=== PATIENT | male | born 1960 | race Two or more races ===

== ENCOUNTER 2019-01-22 23:07 | Inpatient (IN) | payer MEDICAID ==
[~2019-01-22] VITALS: Ht 160 cm; Wt 59.0 kg
[2019-01-23 00:46] LABS: Basophils # (auto) 0 uL; Eosinophils # (auto) 0 uL; Eosinophils % (auto) 0.8 % (0.0-7.0); Hematocrit 30.6 % (41.0-53.0); Lymphocytes # (auto) 1.1 uL; Lymphocytes % (auto) 31.4 % (10.0-50.0); Mean Corpuscular Hemoglobin 27.3 pg (28.0-32.0); Mean Corpuscular Hgb Conc. 32.7 g/dL (32.0-36.0); Mean Corpuscular Volume 83.4 fL (80.0-100.0); Monocytes # (auto) 0.4 uL; Monocytes % (auto) 10.8 % (0.0-12.0); Platelet Count (auto) 104 10^3/uL (140-450); Red Blood Cells 3.67 10^6/uL (4.5-5.90); Red Cell Distribution Width 22.1 % (11.8-14.3); White Blood Cell 3.6 10^3/uL (4.4-10.8)
[2019-01-23] MEDS ORDERED: SODIUM CHLORIDE 0.9% 500 ML IV ONE (01:00)
[2019-01-23 01:03] LABS: Albumin 3.4 g/dL (3.4-5.0); BUN/Creatinine Ratio 12.9; Calcium 7.7 mg/dL (8.5-10.1); Potassium 3.4 mmol/L (3.5-5.1)
[2019-01-23 01:05] LABS: Salicylate < 1.7 mg/dL (2.8-20.0)
[2019-01-23 01:07] LABS: Acetaminophen < 2.0 ug/mL (10-30)
[2019-01-23 01:10] LABS: Urine WBC None Seen /hpf (0 - 3)
[2019-01-23 01:12] LABS: Bilirubin, Total 0.4 mg/dL (0.2-1.0); Total Protein 8.1 g/dL (6.4-8.2)
[2019-01-23] MEDS ORDERED: MULTIPLE VITAMIN 10 ML, MAGNESIUM SULF SDV 50% 8 MEQ, THIAMINE INJ 100 MG in SODIUM CHL... IV ONE (01:30)
[2019-01-23 01:47] LABS: Amphetamine Screen, Urine NEGATIVE (NEGATIVE); Barbiturate Scree,Urine NEGATIVE (NEGATIVE); Benzodiazephine Screen, Urine NEGATIVE (NEGATIVE); Cannabinoid Screen, Urine NEGATIVE (NEGATIVE); Cocaine Screen, Urine NEGATIVE (NEGATIVE); Opiate Scree,Urine NEGATIVE (NEGATIVE); Phencyclidine Screen, Urine NEGATIVE (NEGATIVE)
[2019-01-23 01:49] LABS: Urine Bacteria FEW /hpf (None Seen); Urine Blood Negative /uL (Negative); Urine Specific Gravity 1.003 (1.001-1.035)
[2019-01-23] MEDS ORDERED: LEVOFLOXACIN 750MG 150 ML IV ONE (03:30)
[2019-01-23] MEDS ORDERED: ACETAMINOPHEN 325 MG TAB PO PRN (04:00)
[2019-01-23] MEDS ORDERED: ONDANSETRON HCL 4 MG/2 ML VIAL IV PRN (04:00)
[2019-01-23] MEDS ORDERED: LORazepam 2MG/ML-1ML VIAL IV PRN (04:00)
[2019-01-23 06:17] VITALS: BP 126/86
--- NOTE | 2019-01-23 08:30 | NUR ---
MS admit from ER ARLINE CODY admitted to tele/MS after SBAR received. Patient oriented to GELA CAGE, RN primary RN, unit, room, bed, and unit policies regarding patient care and visiting hours. Patient weighed by bed scale and encouraged to call if they need something. All questions and concerns addressed, patient verbalized understanding.
[2019-01-23 08:44] VITALS: BP 115/90
[2019-01-23 08:58] VITALS: BP 115/90
[2019-01-23] MEDS: IPRATROPIUM BROM 0.5 MG/2.5ML INH SOL NEB SCH ×3 (09:18→18:15)
[2019-01-23] MEDS: ALBUTEROL SULF 2.5 MG/0.5ML(0.5%) NEB SOLN NEB SCH ×3 (09:18→18:15)
[2019-01-23] MEDS: cefTRIAXone 1GM/50ML D5W 50 ML IV SCH (09:49)
[2019-01-23] MEDS: POTASSIUM CHL 20 Meq TABLET PO SCH (10:33)
[2019-01-23] MEDS: AZITHROMYCIN 500MG/ 250ML 250 ML IV SCH (10:33)
[2019-01-23] MEDS ORDERED: POTASSIUM CHL 20 Meq TABLET PO ONE (11:15)
[2019-01-23 12:00] VITALS: BP 126/79
--- NOTE | 2019-01-23 12:00 | NUR ---
Sent stool sample to lab.
--- NOTE | 2019-01-23 13:00 | NUR ---
Dr. Mauro at bedside. New orders received.
[2019-01-23] MEDS: MULTIPLE VITAMIN 10 ML, MAGNESIUM SULF SDV 50% 8 MEQ, THIAMINE INJ 100 MG in SODIUM CHL... IV SCH (13:39)
[2019-01-23] MEDS: chlordiazePOXIDE HCL 25 MG CAP PO PRN (16:16)
[2019-01-23] MEDS: GABAPENTIN 400 MG CAP PO SCH ×2 (16:16→21:08)
[2019-01-23 16:44] VITALS: BP 154/94
--- NOTE | 2019-01-23 19:30 | NUR ---
Opening Shift Note Assumed care of patient, awake and alert. No S/S of distress/SOB or pain. Insructed on POC and to callfor assist PRN, will continue to monitor for changes Q1hr and PRN. Found patient sitting in chair with bowel movement on bed and on floor. Pt cleaned, full linen change done, gown changed, and patient assisted back to bed with assist from myself and secondary RN Garrett. Fall and safety precautions in place. Call light within reach.
[2019-01-23] MEDS: MAGNESIUM OXIDE 400 MG TAB PO SCH (21:08)
[2019-01-23 22:00] VITALS: BP 131/71
[2019-01-24 04:30] VITALS: BP 135/89
[2019-01-24 05:18] LABS: Hemoglobin 9.2 g/dL (13.5-17.5); Mean Corpuscular Hemoglobin 27.5 pg (28.0-32.0); Mean Corpuscular Volume 83.3 fL (80.0-100.0); Platelet Count (auto) 87 10^3/uL (140-450); Red Blood Cells 3.35 10^6/uL (4.5-5.90); White Blood Cell 3.4 10^3/uL (4.4-10.8)
[2019-01-24] MEDS: GABAPENTIN 400 MG CAP PO SCH ×2 (05:26→13:59)
[2019-01-24] MEDS: chlordiazePOXIDE HCL 25 MG CAP PO PRN ×2 (05:26→12:00)
--- NOTE | 2019-01-24 05:30 | NUR ---
TEMP Pt's temp this morning is 100.1 oral. Pt medicated with PRN medication (see emar) and cooling measures applied via ice packs and blanket removal. Informed patient reason for ice packs and blanket removal, verbalized understanding. Will recheck approximately 1 hr.
[2019-01-24 05:41] LABS: BUN/Creatinine Ratio 8.6; Calcium 7.9 mg/dL (8.5-10.1)
[2019-01-24 05:45] LABS: Red Cell Distribution Width 22.5 % (11.8-14.3)
[2019-01-24 05:46] LABS: Band Neutrophils % (manual) 0; Basophils % (manual) 0 (0.0-2.0); Blast Cells 0; Metamyelocytes % 0; Myelocytes % 0; Promyelocytes % 0; Reactive Lymphocytes 0
[2019-01-24] MEDS: ALBUTEROL SULF 2.5 MG/0.5ML(0.5%) NEB SOLN NEB SCH ×2 (05:47→09:53)
[2019-01-24] MEDS: IPRATROPIUM BROM 0.5 MG/2.5ML INH SOL NEB SCH ×2 (05:47→09:53)
--- NOTE | 2019-01-24 06:27 | NUR ---
TEMP Recheck pt's temp this morning, 98.1 oral. Ice packs removed and pt covered with sheet only. Will continue to monitor
--- NOTE | 2019-01-24 08:00 | NUR ---
PT A AND O X4, PT KNOWS NAME, , PRESIDENT, AND WHEREABOUTS. 100 MLS CLEAR YELLOW URINE NOTED IN LUCAS WITH TRACE AMOUNT OF PINK. PT REPORTS HE IS ABLE TO SPEAK [place]. PT RESTING IN BED, NO DISTRESS NOTED. PT AMBULATED TO BEDSIDE COMMODE.
[2019-01-24 08:07] LABS: Eosinophils % (manual) 1 (0-7); Lymphocytes % (manual) 15 (10.0-50.0); Monocytes % (manual) 16 (0-12)
[2019-01-24 08:22] VITALS: BP 129/70
[2019-01-24] MEDS: cefTRIAXone 1GM/50ML D5W 50 ML IV SCH (08:59)
[2019-01-24] MEDS: POTASSIUM CHL 20 Meq TABLET PO SCH (09:09)
[2019-01-24] MEDS: MAGNESIUM OXIDE 400 MG TAB PO SCH (09:09)
--- NOTE | 2019-01-24 11:18 | NUR ---
KAYLEIGH SAMPLE FOR C DIFF SENT TO LAB.
[2019-01-24] MEDS: AZITHROMYCIN 500MG/ 250ML 250 ML IV SCH (11:59)
[2019-01-24 12:34] VITALS: BP 124/81
--- NOTE | 2019-01-24 13:52 | NUR ---
SPOKE WITH DR GARCIA AT [facility], NEW ORDERS FOR SS CONSULT FOR HOME HEALTH, RYAN LUCAS, NOTIFIED OF SMALL AMOUNT OF BLOOD IN URINE, NEW ORDER FOR PHYSICAL THERAPY EVALUATION, POSSIBLE DC TOMORROW, AND LIBRIUM CHANGED FROM Q 6 PRN TO SCHEDULED Q 12.
[2019-01-24] MEDS: MULTIPLE VITAMIN 10 ML, MAGNESIUM SULF SDV 50% 8 MEQ, THIAMINE INJ 100 MG in SODIUM CHL... IV SCH (13:58)
--- NOTE | 2019-01-24 14:08 | NUR ---
DC'D LUCAS CATHETER, PT TOLERATED PROCEDURE WELL. 400 MLS CLEAR YELLOW URINE WITH PINK TINGE DRAINED. 10 MLS NS PULLED FROM BALLOON, WILL CONTINUE TO MONITOR.
--- NOTE | 2019-01-24 14:45 | NUR ---
SPOKE WITH DR GARCIA, NEW ORDERS FOR DISCHARGE. ASKED MD IF PATIENT HAS TO VOID BEFORE HE LEAVES. MD REPORTS HE DOES NOT HAVE TO VOID, PT CAN BE DISCHARGED.
--- NOTE | 2019-01-24 15:00 | NUR ---
TAXI VOUCHER RECEIVED FROM [facility] AND DOCTOR REPORTS PT CAN LEAVE TODAY EVEN IF [facility] IS UNABLE ARRANGE HOME HEALTH TODAY.
[2019-01-24 15:58] VITALS: BP 124/81
--- NOTE | 2019-01-24 16:21 | NUR ---
faxed ss order to [facility] to give auth to Chevy
--- NOTE | 2019-01-24 16:47 | NUR ---
assessment Per ss consult for alcohol abuse and homeless shelters. Per patient he is not homeless. Per patient he lives with his son [place] and functions independently. Patient informed me he drinks 2 tall cans of beer daily. I have provided patient with resources for inpatient and outpatient rehab facilities. Patient accepted resources. Per ss consult arrange for home health for safety eval and fww. MD order has been sent to [facility] and to [facility] for fww. Per [facility] has accepted and awaiting Auth. Per Rosy pt should already have walker at home and was delivered in June. Patient has been notified. Nataliya dependency case manager is getting auth. Patient has been notified. Addendum: 01/24/19 at 1654 by Anne Rosario Amended: Links added.
--- NOTE | 2019-01-24 16:51 | NUR ---
PT HAS BEEN WAITING BY DOOR FOR 1 HOUR, PT REPORTS HE WANTS TO LEAVE AND HAVE WALKER DELIVERED TOMORROW. WILL HAVE PT SIGN AMA FOR HOME HEALTH AND WALKER. PRESCRIPTIONS FILLED BY [facility] AND GIVEN TO PATIENT. GOT TAXI, AND TOLD SS THAT PT DOES NOT WANT TO WAIT. SS NOTIFIED.
--- NOTE | 2019-01-24 17:00 | NUR ---
PT REPORTS HE VOIDED IN THE BATHROOM, CALLED TAXI, AWAITING RIDE.
--- NOTE | 2019-01-24 17:25 | NUR ---
Discharge instructions given as ordered. Encourage to follow up with PMD as instructed. All questions and concerns addressed. Patient verbalized understanding. Medication reconciliation form completed and copy given to patient. IV removed with catheter intact, pressure dressing applied, hubbard catheter removed. Patient taken to taxi via wheelchair with all personal belongings, accompanied by instructional design specialist and taxi voucher. No distress noted at time of departure.
[2019-01-25] MEDS ORDERED: chlordiazePOXIDE HCL 25 MG CAP PO SCH
--- NOTE | 2019-01-25 09:51 | NUR ---
AUTH FOR MARILEE IS H [id number] . CALLED ANDREW AJITH AND LEFT MESSAGE FOR HER TO FIND OUT IF PT HAD WALKER DELIVERED IN JUN 2108 AND IF SO WALKER WILL NOT BE APPROVED THIS TIME. Addendum: 01/25/19 at 0959 by Nataliya Borja RN CM [facility] AUTH FOR [facility] IS [id number]
== END 2019-01-24 17:00 | disposition home or self-care (01) | DRG 139 ==
LOC: EDBD 23:07 → ER 23:14 → OVERFLOW 01-23 03:56 → WEST WING 01-23 09:11
PROVIDERS: ADMIT Nurse Practitioner Family; ATTEND Hospitalist
DX: J18.1 Lobar pneumonia, unspecified organism (principal); G92 Toxic encephalopathy; J90 Pleural effusion, not elsewhere classified; E87.6 Hypokalemia; F10.229 Alcohol dependence with intoxication, unspecified; D63.8 Anemia in other chronic diseases classified elsewhere; K21.9 Gastro-esophageal reflux disease without esophagitis; Z59.0 Homelessness; Z87.891 Personal history of nicotine dependence
CPT/HCPCS: 36415; 36600; 71045; 80048; 80053; 80307; 80320; 80329; 81001; 82270; 82805; 85007; 85025; 85027; 85048; 87040; 87081; 87493; 94640; 94761; 96361; 96365; 96367; G0378; J0696; J1956; J2405

== ENCOUNTER 2019-07-14 15:39 | Emergency (ER) | payer MEDICAID, OTHER ==
[~2019-07-14] VITALS: Ht 170.2 cm; Wt 59.0 kg
[2019-07-14] MEDS ORDERED: SODIUM CHLORIDE 0.9% 500 ML IV ONE (16:14)
[2019-07-14 17:05] LABS: Basophils # (auto) 0 uL; Basophils % (auto) 0.2 % (0.0-2.0); Eosinophils # (auto) 0 uL; Hematocrit 30.4 % (41.0-53.0); Hemoglobin 10.2 g/dL (13.5-17.5); Lymphocytes # (auto) 0.5 uL; Lymphocytes % (auto) 12.9 % (10.0-50.0); Mean Corpuscular Hemoglobin 31.6 pg (28.0-32.0); Mean Corpuscular Hgb Conc. 33.6 g/dL (32.0-36.0); Mean Corpuscular Volume 94.1 fL (80.0-100.0); Monocytes # (auto) 0.3 uL; Monocytes % (auto) 6.8 % (0.0-12.0); Neutrophils # (auto) 3.3 uL; Neutrophils % (auto) 80.1 % (37.0-80.0); Nucleated Red Blood Cells % 0.1 %; Platelet Count (auto) 88 10^3/uL (140-450); Red Blood Cells 3.23 10^6/uL (4.5-5.90); Red Cell Distribution Width 15.8 % (11.8-14.3); White Blood Cell 4.1 10^3/uL (4.4-10.8)
[2019-07-14 17:18] LABS: Alanine Aminotransferase 40 U/L (16-61); Albumin 3.2 g/dL (3.4-5.0); Anion Gap 12 (5-15); Blood Alcohol < 3.0 mg/dL (0-5); Blood Urea Nitrogen 6 mg/dL (7-18); Calcium 7.1 mg/dL (8.5-10.1); Carbon Dioxide 25 mmol/L (21-32); Chloride 91 mmol/L (98-107); Glucose 114 mg/dL (74-106); Magnesium 1.4 mg/dL (1.6-2.6); Sodium 128 mmol/L (136-145)
[2019-07-14 17:23] LABS: Alkaline Phosphatase 250 U/L (45-117); Aspartate Aminotransferase 96 U/L (15-37); BUN/Creatinine Ratio 5.2; Bilirubin, Total 1.5 mg/dL (0.2-1.0); GFR African American 83 mL/min; GFR Non-African American 68 mL/min; Total Protein 6.9 g/dL (6.4-8.2)
[2019-07-14 17:31] LABS: Potassium 2.8 mmol/L (3.5-5.1)
[2019-07-14] MEDS ORDERED: POTASSIUM CHL 20 Meq TABLET PO ONE (18:30)
[2019-07-14 19:00] VITALS: BP 129/89
== END 2019-07-14 19:32 | disposition home or self-care (01) ==
LOC: EDUNIT# 15:39 → ER 15:39 → EDBD 15:39 → ER 19:32
DX: R07.89 Other chest pain (principal); E87.6 Hypokalemia
CPT/HCPCS: 36415; 71045; 80053; 80320; 83735; 84484; 85025; 93005; 99284; J7040